=== PATIENT | female | born 1950 | race Two or more races ===

== ENCOUNTER 2025-10-30 08:00 | Emergency (ER) | payer OTHER ==
[~2025-10-30] VITALS: Ht 160 cm; Wt 72.1 kg
[2025-10-30] MEDS ORDERED: PLAQUENIL PO (08:36)
[2025-10-30] MEDS ORDERED: FAMOTIDINE/PF 20 MG/2 ML VIAL IV ONE (09:15)
[2025-10-30] MEDS ORDERED: CIPROFLOXACIN IN 5 % DEXTROSE 400 MG/200 ML PIGGYBAG IV ONE ×2 (09:15→09:26)
[2025-10-30] MEDS ORDERED: KETOROLAC TROMETHAMINE 30 MG VIAL IV ONE (09:15)
[2025-10-30] MEDS ORDERED: METRONIDAZOLE/SODIUM CHLORIDE 500 MG/100 ML PIGGYBACK IV ONE ×2 (09:15→09:27)
[2025-10-30] MEDS ORDERED: 0.9 % SODIUM CHLORIDE 1,000 ML IV SCH (09:15)
[2025-10-30] MEDS ORDERED: KETOROLAC TROMETHAMINE 30 MG VIAL ONE (09:26)
[2025-10-30] MEDS ORDERED: FAMOTIDINE/PF 20 MG/2 ML VIAL ONE ×2 (09:27→09:51)
[2025-10-30 10:42] LABS: BASO % 1.3 % (0.1-1.2); EOS # 0.08 (0.04-0.54); EOS % 1.3 % (0.7-7.0); LYMPH # 1.67 (1.18-3.74); LYMPH % 26.8 % (19.3-53.1); MEAN PLATELET VOLUME 8.70 fl (9.4-12.4); MONO # 0.34 (0.24-0.82); MONO % 5.5 % (4.7-12.5); NEUT # 4.04 (1.56-6.13); NEUT % 64.9 % (34.0-71.1); RED CELL DISTRIBUTION WIDTH 13.1 % (11.6-14.4)
[2025-10-30 10:51] LABS: ERYTHROCYTE SEDIMENTATION RATE 48 mm/hr (0-30)
[2025-10-30 11:22] LABS: URINE APPEARANCE Clear; URINE BILIRRUBIN Negative (NEGATIVE); URINE BLOOD Negative; URINE COLOR Yellow; URINE KETONE Negative (NEGATIVE); URINE LEUKOCYTE Negative; URINE NITRATE Negative; URINE PROTEIN Negative (NEGATIVE); URINE UROBILINOGEN 0.2 E.U./dl
[2025-10-30 11:25] LABS: ALT/SGPT 19 U/L (12-78); AST/SGOT 35 U/L (15-37); BILIRUBIN TOTAL 0.34 mg/dL (0.3-1.2); BUN CREA RATIO 26 (7.0-25.0); CREATININE SERUM 1.37 mg/dL (0.55-1.02); GFR 37.79; GLOBULINA 4.0 G/DL (2.4-3.5); GLUCOSE FASTING 110 mg/dL (65-100); OSMOLALITY SERUM 290 MOSM/KG (275-295)
[2025-10-30 11:26] LABS: URINE BACTERIA 3.4 uL (0.0-1933); URINE CAST 0.00 uL (0.0-1.40); URINE EPITHELIAL CELLS 0.6 uL (0.0-38.8); URINE GLUCOSE 250 MG/DL (NEGATIVE); URINE RBC 0.2 uL (0.0-20.8); URINE WBC 0.3 uL (0.0-23.2)
[2025-10-30] MEDS ORDERED: IBUPROFEN400 MG PO (15:43)
[2025-10-30] MEDS ORDERED: LEVSIN0.125 MG PO (15:43)
== END 2025-10-30 16:34 | disposition home or self-care (01) ==
LOC: ER 08:01
PROVIDERS: Student in an Organized Health Care Education/Training Program
DX: R10.32 Left lower quadrant pain (principal); K57.32 Diverticulitis of large intestine without perforation or abscess without bleeding; Z88.0 Allergy status to penicillin; N39.0 Urinary tract infection, site not specified; M32.8 Other forms of systemic lupus erythematosus
CPT/HCPCS: 36415; 74176; 96365; 96366; 99284; J0744; J1885; J3490; J7030